=== PATIENT | female | born 1960 | race Caucasian/White ===

== ENCOUNTER → 2016-09-01 | Outpatient (CLI) | payer MEDICARE, BC ==
[2014-07-19 17:44] VITALS: BP 157/76
[~2016-09-01] MED LIST: ALPR0.25 PO; ARIP1SOL PO; BUPR75TA5 PO; CARB200T3 PO; LEVO25TA4 PO; QUET25TA5 PO
--- NOTE | 2016-09-02 08:09 | KCIC ---
Bilateral digital screening mammograms with CAD: HISTORY Routine screening COMPARISON Comparison is made to previous examinations dated 08/23/2015 and 10/22/2008. FINDINGS Breast density category C. The skin and nipples show no abnormalities. No abnormal lymph nodes are seen in the axilla. The breast parenchyma shows heterogeneous density. There appears to be some new nodularity anterior medially in the left breast on CC view which is probably at the 9 o'clock position and measures approximately 5.7 millimeters in size. Recommend further evaluation with coned compression views and ultrasound. There are no other dominant masses, suspicious calcifications or architectural distortions. IMPRESSION New nodularity anterior medially in the left breast on CC view and probably located at the 9 o'clock position. This measures approximately 5.7 millimeters in size. Recommend further evaluation with coned compression views and ultrasound. This study was interpreted with the benefit of Computerized Aided Detection (CAD). Mammography is not 100% sensitive in detecting breast cancer. Therefore, a self breast exam and a clinical breast exam are very important. A negative mammogram does not negate a clinically suspicious finding and should not result in a delay in biopsying a clinically suspicious abnormality. BI-RADS category 0: Incomplete. Additional imaging is recommended. This patient's information has been entered into a reminder system for the patient to be notified with the results of this examination and a target date for her next mammograms. Electronically signed by: Maddy Reardon MD (September 02, 2016 08:08:19)
== END | disposition home or self-care (01) ==
LOC: KCIC MAMMO 11:11
PROVIDERS: ATTEND Family Medicine
DX: Z12.31 Encounter for screening mammogram for malignant neoplasm of breast (principal)
CPT/HCPCS: G0202; 77067

== ENCOUNTER → 2016-10-08 | Outpatient (CLI) | payer MEDICARE, BC ==
[2014-07-19 17:44] VITALS: BP 157/76
--- NOTE | 2016-10-08 13:33 | RAD ---
DATE: 10/08/2016 EXAM: DIGITAL DIAGNOSTIC LT HISTORY: Nodule seen in the left breast on recent screening mammogram. COMPARISON: 09/01/2016 This study was interpreted with the benefit of Computerized Aided Detection (CAD). FINDINGS: Spot compression MLO and CC digital mammograms of the left breast were obtained. Comparison study is dated 09/01/2016. The nodular density seen within the left breast on the patient's recent mammogram compresses out on today's spot compression views. No persistent mass is seen. IMPRESSION: The nodular density within the left breast compresses out on today's spot compression views. No mass is seen. I would recategorize the patient's mammograms as a BI-RADS Category 1, negative with a recommendation for routine yearly screening mammography for follow-up. BI-RADS CATEGORY: 1 NEGATIVE RECOMMENDED FOLLOW-UP: 12M 12 MONTH FOLLOW-UP PQRS compliance statement: Patient information was entered into a reminder system with a target due date 09/01/2017 for the next mammogram. Mammography is a sensitive method for finding small breast cancers, but it does not detect them all and is not a substitute for careful clinical examination. A negative mammogram does not negate a clinically suspicious finding and should not result in delay in biopsying a clinically suspicious abnormality. "Our facility is accredited by the [employer] Mammography Program."
== END | disposition home or self-care (01) ==
LOC: KCIC MAMMO 12:35
PROVIDERS: ATTEND Family Medicine
DX: N63 Unspecified lump in breast (principal)
CPT/HCPCS: G0206; 77065

== ENCOUNTER → 2017-10-18 | Outpatient (CLI) | payer MEDICARE, BC | END | disposition home or self-care (01) | LOC: KCIC MAMMO 13:52 | DX: Z12.31 Encounter for screening mammogram for malignant neoplasm of breast (principal) | CPT/HCPCS: 77063; 77067 ==

== ENCOUNTER 2018-04-07 05:33 | Observation (INO) | payer MEDICARE ==
[~2018-04-07] VITALS: Ht 162.6 cm; Wt 60.3 kg
[~2018-04-07 05:33] MED LIST changes: +AMLO10TA6 PO
[2018-04-07] MEDS ORDERED: fentaNYL PF VIAL 100 MCG/2 ML VIAL IV PRN ×2 (07:00)
[2018-04-07] MEDS ORDERED: MORPHINE SULFATE 2 MG/ML VIAL. IV PRN (07:00)
[2018-04-07] MEDS ORDERED: ONDANSETRON PF 4 MG/2 ML VIAL. IV PRN ×2 (07:00→10:45)
[2018-04-07] MEDS ORDERED: IV RINGERS,LACTATED 1000ML 1,000 ML IV SCH (07:00)
[2018-04-07] MEDS ORDERED: PROCHLORPERAZINE 10 MG/2 ML VIAL. IV PRN (07:00)
[2018-04-07] MEDS ORDERED: LIDOCAINE 1% PF 2 ML VIAL. ID PRN (07:00)
[2018-04-07] MEDS ORDERED: HYDROmorphone 2 MG/ML VIAL IV PRN (07:00)
[2018-04-07] MEDS ORDERED: BUPIVAC MPF-EPI 0.5%-1:200000 30 ML VIAL. ONE (07:22)
[2018-04-07] MEDS ORDERED: ESTROGENS, CONJ VAGINAL CREAM 30GM TUBE. ONE (07:22)
[2018-04-07] MEDS ORDERED: INDIGOTINDISULFONATE SODIUM 40 MG/5 ML AMPUL. IV ONE (07:30)
[2018-04-07] MEDS ORDERED: DEXAMETHASONE SOD PHOS 20 MG/5 ML VIAL. ONE (07:57)
[2018-04-07] MEDS ORDERED: PROPOFOL 20 ML IV ONE (07:57)
[2018-04-07] MEDS ORDERED: LIDOCAINE 2% PF Vial for OR 5 ML VIAL. ONE (07:57)
[2018-04-07] MEDS ORDERED: FAMOTIDINE 20 MG/2 ML VIAL ONE (07:57)
[2018-04-07] MEDS ORDERED: ONDANSETRON PF 4 MG/2 ML VIAL. ONE (07:57)
[2018-04-07] MEDS ORDERED: MIDAZOLAM HCL/PF 2 MG/2 ML VIAL. ONE (07:58)
[2018-04-07] MEDS ORDERED: ROCURONIUM 50 MG/5 ML VIAL. ONE (07:58)
[2018-04-07] MEDS ORDERED: fentaNYL PF VIAL 100 MCG/2 ML VIAL ONE ×2 (07:58→10:52)
--- NOTE | 2018-04-07 08:08 | RAD ---
CHEST PA LATERAL History: PRE OP FOR HYSTERECTOMY TODAY. Comparison: None. Heart size: Within normal limits. Maggie/mediastinum: Within normal limits Lungs: No focal airspace consolidation. Pleura: No evidence of pleural effusion. Pneumothorax: None visualized Bones: Mild anterior wedging of a lower thoracic vertebral body, probably T12. Miscellaneous: None Impression: No acute cardiopulmonary findings. Electronically signed by: Crow Lazo MD (04/07/2018 8:04 AM) [facility]
[2018-04-07] MEDS ORDERED: diphenhydrAMINE 50 MG/ML VIAL ONE (08:47)
[2018-04-07] MEDS: ALPRAZolam 0.25 MG TABLET PO SCH (09:00)
[2018-04-07] MEDS ORDERED: KETOROLAC 30 MG/ML INJ FOR OR. INJ ONE (09:37)
[2018-04-07] MEDS ORDERED: GLYCOPYRROLATE 1 MG/5 ML VIAL. ONE (09:37)
[2018-04-07] MEDS ORDERED: NEOSTIGMINE METHYLSULFATE 5 MG/5 ML SYRINGE. ONE (09:37)
[2018-04-07] MEDS ORDERED: SEVOFLURANE 61 TO 120 MINUTES. IH ONE (10:20)
--- NOTE | 2018-04-07 10:31 | PDOC ---
BRIEF OPERATIVE NOTE Date: Apr 07, 2018 Pre-Op Diagnosis ovarian mass with elevated Ca-125 level Post-Op Diagnosis same Procedure Performed LAVH/BSO Surgeon Dr. Angelica Sherman Telegrapher Agent OR Anesthesiologist Dr. Walters Anesthesia Type: General Blood Loss 25cc IV Fluid 1L Urine Output 400cc clear via emerson Specimens Obtained cervix, uterus, bilateral tubes and ovaries Findings small postmenopausal uterus, normal bilateral tubes and left ovary, right ovary with small mass; very narrow atrophic vagina Complications none Operative Note [id number] ANGELICA SHERMAN MD Apr 07, 2018 10:31
[2018-04-07] MEDS ORDERED: 0.9 % SODIUM CHLORIDE 10 ML DISP.SYRIN. IV PRN (10:45)
[2018-04-07] MEDS ORDERED: NALOXONE 0.4 MG/ML VIAL. IV PRN (10:45)
[2018-04-07] MEDS ORDERED: HYDROcodone/APAP 5/325MG 1 TAB TABLET PO PRN (10:45)
[2018-04-07] MEDS ORDERED: CALCIUM CARBONATE 500 MG TAB.CHEW PO PRN (10:45)
[2018-04-07] MEDS ORDERED: LACTULOSE 20 GM/30 ML SOLUTION. PO PRN (10:45)
[2018-04-07] MEDS ORDERED: oxyCODONE/APAP 5/325 1 TAB TABLET PO PRN (10:45)
[2018-04-07] MEDS ORDERED: MORPHINE SULFATE 4 MG/ML VIAL. IV PRN (10:45)
[2018-04-07] MEDS ORDERED: MAGNESIUM HYDROXIDE 2,400 MG/30 ML ORAL.SUSP. PO PRN (10:45)
[2018-04-07] MEDS ORDERED: MAG HYDROX/ALUMINUM HYD/SIMETH 30 ML ORAL.SUSP PO PRN (10:45)
[2018-04-07] MEDS ORDERED: diphenhydrAMINE 50 MG/ML VIAL IV PRN (10:45)
[2018-04-07] MEDS ORDERED: diphenhydrAMINE HCL 25 MG CAPSULE PO PRN (10:45)
[2018-04-07] MEDS ORDERED: SIMETHICONE 80 MG TAB.CHEW PO PRN (10:45)
[2018-04-07] MEDS ORDERED: ZOLPIDEM 5 MG TABLET. PO PRN (10:45)
[2018-04-07] MEDS: carBAMazepine 200 MG TABLET PO SCH ×2 (11:00→21:00)
[2018-04-07] MEDS: amLODIPine BESYLATE 10 MG TABLET PO SCH (11:00)
[2018-04-07] MEDS: buPROPion SR 150 MG TABLET.SA PO SCH (11:00)
--- NOTE | 2018-04-07 11:04 | OP ---
DATE OF SURGERY: 04/07/2018 PREOPERATIVE DIAGNOSIS: Ovarian mass with elevated CA-125 level. POSTOPERATIVE DIAGNOSIS: Ovarian mass with elevated CA-125 level. PROCEDURE: Laparoscopic-assisted vaginal hysterectomy, bilateral salpingo-oophorectomy. SURGEON: Alexander Hughes M.D. CIRCUITRY NEGATIVE INSPECTOR: OR personnel. ANESTHESIOLOGIST: Dr. Watlers. ANESTHESIA: General. ESTIMATED BLOOD LOSS: 25 mL URINE OUTPUT: 400 mL, clear via Bae catheter. INTRAVENOUS FLUIDS: 1 liter of crystalloid. FINDINGS: A small retroverted uterus, normal bilateral tubes, normal left ovary, right ovary had a small ovarian mass with a very narrow atrophic vagina. Cervix was almost flushed at the top. SPECIMENS: Cervix, uterus, bilateral tubes and ovaries. The right tube and ovary were together, but they were from the uterus and cervix and left tube and ovary. COMPLICATIONS: None. DESCRIPTION OF PROCEDURE: This patient was taken to the operating room where general anesthesia was placed. The patient was placed in [facility]. The patient's abdomen and vagina were prepped and draped in the normal sterile fashion and a Bae catheter had been inserted under sterile technique. Upon my arrival, a timeout was performed. Once everyone agreed, a bivalve speculum was placed in the patient's vagina. A single tooth tenaculum was used to grasp the anterior lip of the cervix. 10 mL of local was placed circumferentially around the cervix for both hemodissection and hemostatic purposes later. The Valtchev uterine manipulator was placed through the endocervical os, locked on the single tooth tenaculum and the bivalve speculum was then removed. Top gloves were discarded and changed. Attention was then turned to the abdomen where a small infraumbilical skin incision was made with the scalpel. A curved Sahara was used to dissect through the subcuticular layer to the fascia. The 5 mm Visiport was used to directly enter the abdominal cavity. Opening patient pressure was 3-4 mmHg. Carbon dioxide gas was used to then appropriately insufflate the abdominal cavity to maintain a pressure of 15 mmHg. The patient was placed in Trendelenburg position. Right and left lower quadrant ports were placed. There was no significant adhesive disease inside, so transilluminating the abdomen making a small incision clear of any vasculature and placing the 5 mm disposable atraumatic ports. Once they were in, 2 mL of air was placed in the cuffs on both sides. The scope was moved and looked at the umbilical port. Once we assured it was then clear that 2 mL of a cuff was inflated as well. At this point, the left tube and ovary were elevated. They were normal finding the ureter coursing low, staying high on the IP ligament under the ovary, the LigaSure was used to cauterize and cut the infundibulopelvic ligament going over through the left round ligament and then going down and starting to get near the uterine vessels on that side and start the bladder flap on this side. Once it was started, it was created sharply. This was done exactly the same on the right side elevating the right tube and ovary. The right ovary had a small mass on it. Finding the ureter coursing low, staying high under the ovary on the IP ligament, cauterizing and cutting with the LigaSure going through the right round ligament. When I came back, I went through the right uterine ovarian pedicle as well and so, the right tube and ovary were detached and placed in the cul-de-sac, but I then did go down to get the uterines on this side as well and met that bladder flap and made sure it was down getting the uterine vessels on both sides, staying inside that and going through the cardinal and broad ligaments down to the uterosacral ligaments bilaterally. The entire uterus was free and blanched. At this point, everything was removed from the abdomen and attention was turned vaginally. The single tooth and Valtchev were removed. A weighted speculum was placed in the patient's vagina. Thyroid Jose Eduardo clamps were placed on the anterior and posterior lips of the cervix respectively. A scalpel was used to make a circumferential incision in the cervix. The posterior cul-de-sac was sharply entered by elevating the cervix and sharply entering it with the Stockton scissors. A #0 Vicryl stitch was used to secure the posterior peritoneum here to the vaginal cuff and it was tagged with a curved Sahara clamp and the needle was cut and passed off. The short weighted vaginal speculum was removed and replaced with the long weighted Candace speculum in the posterior cul-de-sac. Once this was done, an open Ray-Kahlil was used to gently push up the anterior bladder peritoneum and I worked on the patient's left side and was able to get in on the left side to the anterior cul-de-sac and placed the curved Darin. I then removed the 4 x 4. At this point, curved Cabrera clamps x 2 were placed on the patient's left uterosacral ligament where they were doubly clamped with curved Heaneys, cut with Stockton scissors and suture ligated x 2 with 0 Vicryl. The second one was taken through the vaginal cuff securing uterosacral ligament to the vaginal cuff and tagging it with a straight Sahara clamp and cutting and passing the needle off. This was done exactly the same on the patient's right side, double clamping the uterosacrals with curved Cabrera's, cutting with Stockton scissors, suture ligating x 2 with 0 Vicryl and taking the second one through the vaginal cuff, tagging it with a straight Sahara clamp and cutting and passing the needle off. Once this was done, the remaining pedicles on both sides were delineated with the curved mixture and the vaginal LigaSure was used to cauterize the remaining pedicles on both sides. The cervix, uterus, left tube and ovary were delivered in total. The right tube and ovary were sitting in the cul-de-sac. These were easily identified and pulled out with pickups. A sponge stick was used to examine the pedicle. A long Allis was used to grasp the anterior bladder peritoneum. The long Candace speculum was removed and replaced with a short weighted vaginal speculum. There was no bleeding from any of the pedicles, so 2-0 Vicryl was taken through the anterior bladder peritoneum, left uterosacral ligament, posterior peritoneum and right uterosacral ligament, thus closing the peritoneum in a pursestring like fashion. The right and left uterosacral tags were clipped as well and the vaginal cuff was closed with a full length 2-0 Vicryl in an anterior to posterior running locked fashion and tied to that posterior cuff tag. Once this was done, a sponge stick was used to examine the cuff. It was completely hemostatic, so all instruments were removed from the vagina and attention was turned back above for a second look. All gloves were discarded and changed. The patient was placed back in Trendelenburg position. Gas was reinsufflated. Copious irrigation revealed hemostasis. The cul-de-sac was dry. The gutters were dry. All the pedicles were dry. Right and left pericolic gutters looked good, so Tisseel was placed over the pedicles with excellent results. All three of the trocar cuffs were deflated. The right and left lower quadrant ports were removed under direct visualization. These were hemostatic. Gas was released from the umbilical port. All 3 port sites were closed with 4-0 nylon at the skin and injected with 10 mL of local. The patient is currently being awakened from anesthesia. ALEXANDER HUGHES MD DR: KAREN/wilian JOB#: [id number] / [id number]
[2018-04-07 11:29] VITALS: BP 113/59
[2018-04-07 21:00] VITALS: BP 120/67
[2018-04-08 04:10] VITALS: BP 110/68
[2018-04-08] MEDS ORDERED: LEVOTHYROXINE 75 MCG TABLET PO SCH (06:00)
[2018-04-08 07:16] LABS: CALCIUM 8.3 mg/dL (8.5-10.1); CREATININE 0.8 mg/dL (0.6-1.0); GFR 73.9; POTASSIUM 3.8 mmol/L (3.5-5.1)
--- NOTE | 2018-04-08 08:37 | PDOC ---
SURGICAL PROGRESS NOTE Subjective Doing well without complaints. Pain level 0-1. Scant spotting, up in chair eating breakfast. Ambulating well, voiding without catheter and wants to go home. Vital Signs Vital Signs Date Time Temp Pulse Resp B/P (MAP) Pulse Ox O2 Delivery O2 Flow Rate FiO2 04/08/18 04:10 98.1 92 110/68 (82) 96 Room Air 98.1 04/07/18 21:00 2.0 04/07/18 21:00 18 I&O Intake and Output 04/08/18 07:00 Intake Total 4795 ml Output Total 1225 ml Balance 3570 ml Intake Oral 3420 ml IV Total 1250 ml Other 125 ml Output Urine Total 1200 ml Estimated Blood Loss 25 ml # Voids 2 PATIENT HAS A FERNANDO: No General: Alert, Oriented X3, Cooperative, No acute distress HEENT: Atraumatic Heart: Regular rate Abdomen: Soft, No tenderness, No masses, Other (all port sites c/d/i with minimal bruising) Extremities: No clubbing, No cyanosis, No edema, No tenderness/swelling Skin: No rashes, No breakdown Neuro: Normal speech Psych/Mental Status: Mental status NL, Mood NL Labs Laboratory Tests Test 04/08/18 06:20 04/08/18 06:40 Hematocrit 34.5 % (36.0-47.0) Sodium Level 133 mmol/L (136-145) Potassium Level 3.8 mmol/L (3.5-5.1) Chloride Level 97 mmol/L (98-107) Carbon Dioxide Level 30 mmol/L (21-32) Anion Gap 6 (6-14) Blood Urea Nitrogen 9 mg/dL (7-20) Creatinine 0.8 mg/dL (0.6-1.0) Estimated GFR (Cockcroft-Gault) 73.9 Glucose Level 121 mg/dL (70-99) Calcium Level 8.3 mg/dL (8.5-10.1) Laboratory Tests Test 04/08/18 06:20 04/08/18 06:40 Hematocrit 34.5 % (36.0-47.0) Sodium Level 133 mmol/L (136-145) Potassium Level 3.8 mmol/L (3.5-5.1) Chloride Level 97 mmol/L (98-107) Carbon Dioxide Level 30 mmol/L (21-32) Anion Gap 6 (6-14) Blood Urea Nitrogen 9 mg/dL (7-20) Creatinine 0.8 mg/dL (0.6-1.0) Estimated GFR (Cockcroft-Gault) 73.9 Glucose Level 121 mg/dL (70-99) Calcium Level 8.3 mg/dL (8.5-10.1) I have reviewed the following labs, vitals and nursing Heme/Onc: No pertinent hx Rheumatologic: No pertinent hx Infectious disease: No pertinent hx Problem List ovarian mass with elevated ca-125 level Assessment/Plan POD#1 s/p LAVH/BSO Routine PO care d/c to home later today NPV x 6 weeks Light/limited activity x 2 weeks keep scheduled follow up with me in the office pt already has narcotic script at home ok to alternate ibuprofen as needed OTC as well call or return sooner for any other questions or concerns not limited to but including pain unrelieved with pain meds, increased or unexplained vaginal bleeding or any other questions or concerns ALEXANDER SHERMAN MD Apr 08, 2018 08:37
--- NOTE | 2018-04-08 08:39 | PDOC3 ---
Discharge Summary Visit Information Date of Admission: Apr 07, 2018 Date of Discharge: Apr 08, 2018 Final Diagnosis ovarian mass Brief Hospital Course Allergies Allergies Coded Allergies Type Severity Reaction Last Updated Verified No Known Drug Allergies 04/07/18 No Vital Signs Vital Signs Date Time Temp Pulse Resp B/P (MAP) Pulse Ox O2 Delivery O2 Flow Rate FiO2 04/08/18 04:10 98.1 92 110/68 (82) 96 Room Air 98.1 04/07/18 21:00 2.0 04/07/18 21:00 18 Lab Results Laboratory Tests Test 04/08/18 06:20 04/08/18 06:40 Hematocrit 34.5 % (36.0-47.0) Sodium Level 133 mmol/L (136-145) Potassium Level 3.8 mmol/L (3.5-5.1) Chloride Level 97 mmol/L (98-107) Carbon Dioxide Level 30 mmol/L (21-32) Anion Gap 6 (6-14) Blood Urea Nitrogen 9 mg/dL (7-20) Creatinine 0.8 mg/dL (0.6-1.0) Estimated GFR (Cockcroft-Gault) 73.9 Glucose Level 121 mg/dL (70-99) Calcium Level 8.3 mg/dL (8.5-10.1) Laboratory Tests Test 04/08/18 06:20 04/08/18 06:40 Hematocrit 34.5 % (36.0-47.0) Sodium Level 133 mmol/L (136-145) Potassium Level 3.8 mmol/L (3.5-5.1) Chloride Level 97 mmol/L (98-107) Carbon Dioxide Level 30 mmol/L (21-32) Anion Gap 6 (6-14) Blood Urea Nitrogen 9 mg/dL (7-20) Creatinine 0.8 mg/dL (0.6-1.0) Estimated GFR (Cockcroft-Gault) 73.9 Glucose Level 121 mg/dL (70-99) Calcium Level 8.3 mg/dL (8.5-10.1) Brief Hospital Course Ms. Jenkins is a 58 old female who presented with ovarian mass and mildly elevated Ca-125 level in the office. She presented yesterday for LAVH/BSO, she underwent the aforementioned procedure without complications. She has had an unremarkable postoperative course and is AF VSS, ambulating well, voiding without catheter, minimal pain desiring to go home. Tolerating regular diet. Discharge Information Condition at Discharge: Improved Follow Up: Weeks Disposition/Orders: D/C to Home Scheduled Alprazolam (Xanax) 0.25 Mg Tablet, 1 TAB PO DAILY, #30 (Reported) Entered as Reported by: TURNER HAMLIN on 08/06/141000 Last Taken: Unknown Dose on 04/07/18299 Last Action: Continued on 04/07 by ALEXANDER SHERMAN Amlodipine Besylate (Amlodipine Besylate) 10 Mg Tablet, 10 MG PO DAILY for HTN, (Reported) Entered as Reported by: CHASE BENAVIDES on 03/31/18 144 Last Taken: Unknown Dose on 04/07/18299 Last Action: Continued on 04/07 by ALEXANDER SHERMAN Bupropion Hcl (Wellbutrin) 75 Mg Tablet, 150 MG PO DAILY for DEPRESSION, #60 ( Reported) Entered as Reported by: TURNER HAMLIN on 08/06/141000 Last Taken: Unknown Dose on 04/07/18299 Last Action: Continued on 04/07 by ALEXANDER SHERMAN Carbamazepine (Epitol) 200 Mg Tablet, 200 MG PO BID for BIPOLAR, (Reported) Entered as Reported by: TURNER HAMLIN on 08/06/141000 Last Taken: Unknown Dose on 04/07/18299 Last Action: Continued on 04/07 by ALEXANDER SHERMAN Levothyroxine Sodium (Levothyroxine Sodium) 25 Mcg Tablet, 75 MCG PO DAILY for HYPOTHYROID, #30 Ref 5 (Reported) Entered as Reported by: TURNER HAMLIN on 08/06/141000 Last Taken: Unknown Dose on 04/07/18299 Last Action: Converted on 04/07 by ALEXANDER SHERMAN Quetiapine Fumarate (Seroquel) 25 Mg Tablet, 1 TAB PO QHS, #30 Ref 2 (Reported) Entered as Reported by: TURNER HAMLIN on 08/06/141000 Last Taken: Unknown Dose on 04/07/18299 Last Action: HELD on 04/07/18831 by ALEXANDER SHERMAN Patient Instructions Patient Instructions POD#1 s/p LAVH/BSO Routine PO care d/c to home later today NPV x 6 weeks Light/limited activity x 2 weeks keep scheduled follow up with me in the office pt already has narcotic script at home ok to alternate ibuprofen as needed OTC as well call or return sooner for any other questions or concerns not limited to but including pain unrelieved with pain meds, increased or unexplained vaginal bleeding or any other questions or concerns ALEXANDER SHERMAN MD Apr 08, 2018 08:39
[2018-04-08] MEDS: carBAMazepine 200 MG TABLET PO SCH (09:00)
[2018-04-08] MEDS: ALPRAZolam 0.25 MG TABLET PO SCH (09:00)
[2018-04-08] MEDS: buPROPion SR 150 MG TABLET.SA PO SCH (09:00)
[2018-04-08] MEDS: amLODIPine BESYLATE 10 MG TABLET PO SCH (09:00)
[2018-04-08] MEDS ORDERED: IBUPROFEN 400 MG TABLET. PO PRN (09:15)
[2018-04-08 09:57] VITALS: BP 130/57
--- NOTE | 2018-04-12 09:09 | PATHOLOGY ---
[facility] Accession Number: [id number] . 01 Material submitted: . UTERUS, FALLOPIAN TUBES AND CERVIX, OVARIES . 01 Clinical history: . Ovarian mass-small, right Elevated CA-125 . 02 Diagnosis: Uterus and bilateral fallopian tubes and ovaries, laparoscopic-assisted vaginal hysterectomy with bilateral salpingo-oophorectomy: - Leiomyoma, uterine corpus, posterior uterine wall, measuring 1.5 cm. - Atrophic endometrium. - Involutional changes and cystic Walthard rests of bilateral fallopian tubes. - Involutional changes of bilateral ovaries. 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 . (JPM:mml; 04/11/18) [facility]/04/11/2018 . 02 Comment: There is no evidence of malignancy. . (JPM:mml; 04/11/18) . 02 Electronically signed: . Rick Newton MD, Pathologist NPI- [id number] . 01 Gross description: . The specimen is received in formalin, labeled "Jenkins, Marcela, uterus, fallopian tubes, cervix, and ovaries" and consists of a uterus with attached cervix weighing 33 g and measuring 6.8 x 3.8 x 2.5 cm. There is attached left tubo-ovarian complex consisting of a fimbriated fallopian tube (4.5 cm in length and 0.4 cm in diameter) which is attached to a 4 g ovary (2.7 x 2.0 x 1.1 cm. Attached is the right fimbriated fallopian tube (4.5 cm in length and 0.5 cm in diameter) which is loosely attached to a 4 g ovary (2.7 x 1.8 x 0.9 cm). The uterine serosa is dorsey, smooth with multifocal hemorrhage on the posterior aspect. The 0.5 cm cervical os is surrounded by ragged pink-dorsey ectocervical mucosa. The specimen is bivalved to reveal a corrugated pink-dorsey endocervical canal measuring 2.0 cm in length. The endometrial cavity is triangular measuring 2.9 cm in length and 1.7 cm in width which is lined by a dorsey-pink endometrium measuring 0.1 cm. Further sectioning reveals a pink-dorsey myometrium measuring up to 1.5 cm containing a single circumscribed nodule measuring 1.2 x 1.1 cm in the posterior myometrium. The cut surfaces of the nodule are pink-dorsey, homogeneous without hemorrhage, necrosis, or calcifications. No additional nodules or mass lesions are identified. . The detached right fimbriated fallopian tube is torres-dorsey and smooth with a few paratubal cysts ranging from 0.1-0.3 cm. Sectioning reveals a central lumen and no gross lesions. The right ovary is dorsey, smooth to cerebriform with a serosal white-dorsey nodule measuring 0.8 x 0.4 x 0.4 cm. The ovary is inked black and sectioned to reveal dorsey cut surfaces with multiple corpora albicantia. The serosal nodule has a homogeneous white-dorsey cut surface. . The attached left fimbriated fallopian tube is purple-dorsey and smooth with 2 paratubal cysts measuring 0.4 and 0.5 cm respectively. Sectioning reveals a central lumen with no gross lesions. The left ovary is dorsey and smooth to cerebriform with a serosal dorsey-brown nodule measuring 0.5 x 0.5 cm. The ovary is inked black and sectioned to reveal a torres-dorsey cut surface with 2 unilocular clear fluid-filled cysts measuring 0.5 cm and 0.7 cm. The serosal nodule has a smooth torres dorsey homogeneous cut surfaces. Raw Products Director sections are submitted as follows: . A1: Anterior cervix A2: Posterior cervix A3: Anterior endomyometrium A4: Posterior endomyometrium A5: Nodule A6-A7: Right fallopian tube, entire A8-A11: Entire right ovary (A8 contains nodule) A12-A13: Entire left fallopian tube A14-A16: Entire left ovary (A14 contains serosal nodule) (SDY; 04/08/2018) SYU/SYU . 02 Pathologist provided ICD-10: D25.9, N85.8, N83.292 . 02 CPT . 189660 Specimen Comment: A courtesy copy of this report has been sent to Specimen Comment: [phone], . Specimen Comment: Report sent to / DR LIANG Specimen Comment: A duplicate report has been generated due to demographic updates. Performed at: 01 [facility] [address] [facility] [address], [place] [id number] MD Nemesio Joyner MD Phone: [phone] Performed at: 02 [facility] [address] [place], [place] [id number] MD Rick Newton MD Phone: [phone]
== END 2018-04-08 10:38 | disposition home or self-care (01) ==
LOC: SURG 05:33 → 3 NORTH 10:58
PROVIDERS: ADMIT Obstetrics & Gynecology; ATTEND Obstetrics & Gynecology
DX: D25.9 Leiomyoma of uterus, unspecified (principal); N83.9 Noninflammatory disorder of ovary, fallopian tube and broad ligament, unspecified; N85.4 Malposition of uterus; N83.292 Other ovarian cyst, left side
CPT/HCPCS: 36415; 58552; 71046; 80048; 85014; 86850; 86900; 86901; 88307; A7015; G0378; G0379; J0690; J1100; J1885; J2001; J2250; J2704; J2710; J3010; J3490; J7030; J7120; J1200; J2405

== ENCOUNTER → 2019-01-18 | Outpatient (CLI) | payer MEDICARE ==
[~2019-01-18] MED LIST changes: -AMLO10TA6 PO; +AMLO10TA8 PO
--- NOTE | 2019-01-18 13:30 | KCIC ---
Bilateral digital screening mammograms with 3-D tomosynthesis: Reason for examination: Routine screening. Comparison is made to previous studies dated 10/18/2017 09/01/2016. Bilateral mammograms in CC and oblique projections were obtained with 2-D imaging and 3-D tomosynthesis imaging on a Siemens Inspiration unit and reviewed on the workstation. Interpretation was made with the benefit of CAD. The skin and nipples show no abnormalities. No abnormal axillary lymph nodes are seen. The breast parenchyma shows scattered fatty and fibroglandular density. (Breast density: Category B.) There are no dominant masses, suspicious calcifications or architectural distortion. Impression: No evidence of malignancy. Recommend routine screening. BI-RAD Category 1: Negative. "Our facility is accredited by the [employer] Mammography Program." This patient's information has been entered into a reminder system for the patient to be notified with the results of her examination and a target date for the next mammogram. Electronically signed by: Sadie Reardon MD (01/18/2019 1:26 PM) [id number]
== END | disposition home or self-care (01) ==
LOC: KCIC MAMMO 09:36
PROVIDERS: ATTEND Family Medicine
DX: Z12.31 Encounter for screening mammogram for malignant neoplasm of breast (principal)
CPT/HCPCS: 77063; 77067

== ENCOUNTER → 2019-10-26 | Outpatient (CLI) | payer MEDICARE ==
--- NOTE | 2019-10-26 08:22 | RAD ---
DUPLEX LOWER EXTREMITY BILAT, CORBIN ART STUDY LOWER EXTREM ANIYAH 10/26/2019 7:00 AM INDICATION: Claudication COMPARISON: None available TECHNIQUE: Sonographic evaluation of the bilateral lower extremity arterial system was performed utilizing grayscale, color Doppler and spectral waveform analysis. FINDINGS: Right: Biphasic waveform is identified in the profunda artery and distal superficial femoral artery. Triphasic waveform is otherwise seen throughout the right lower extremity arterial system. No significant plaque is visualized. Common femoral artery: 142 cm/s Profunda artery: 62 cm/s Superficial femoral artery, proximal: 129 cm/s Superficial femoral artery, mid: 117 cm/s Superficial femoral artery, distal: 95 cm/s Popliteal artery: 80 cm/s Posterior tibial artery: 59-91 cm/s Anterior tibial artery: 100 cm/s Peroneal artery: 43 cm/s Dorsalis pedis artery: 107 cm/s Left: Biphasic waveform is identified in the profunda artery. Otherwise, triphasic waveforms identified throughout the left lower extremity arterial system. No significant plaque is identified on grayscale images. Common femoral artery: 123 cm/s Profunda artery: 99 cm/s Superficial femoral artery, proximal: 131 cm/s Superficial femoral artery, mid: 109 cm/s Superficial femoral artery, distal: 87 cm/s Popliteal artery: 53 cm/s Posterior tibial artery: 41-61 cm/s Anterior tibial artery: 92 cm/s Peroneal artery: 58 cm/s Dorsalis pedis artery: 86 cm/s IMPRESSION: No evidence for hemodynamically significant stenosis involving the bilateral lower extremity arterial system. Electronically signed by: Zandra Gallo MD (10/26/2019 8:19 AM) [id number]
== END | disposition home or self-care (01) ==
LOC: US 06:33
PROVIDERS: ATTEND Family Medicine
DX: I73.9 Peripheral vascular disease, unspecified (principal); L53.9 Erythematous condition, unspecified
CPT/HCPCS: 93922; 93925

== ENCOUNTER → 2020-01-25 | Outpatient (CLI) | payer MEDICARE ==
--- NOTE | 2020-01-25 14:57 | KCIC ---
EXAM: Bilateral digital screening mammogram with tomosynthesis. HISTORY: 59-year-old female presents for screening mammography. TECHNIQUE: Full-field digital craniocaudal and mediolateral oblique 2D and 3D tomosynthesis images of both breasts are obtained for evaluation. Computer aided detection with [employer] software version 9.3 was applied. COMPARISON: 01/18/2019 BREAST PARENCHYMAL DENSITY: Level C - Heterogeneously dense. FINDINGS: There is no new suspicious mass, microcalcification or region of architectural distortion. IMPRESSION: BI-RADS Category 2: Benign finding(s). RECOMMENDATION: Annual mammography is recommended. If your mammogram demonstrates that you have dense breast tissue, which could hide abnormalities, and if you have other risk factors for breast cancer that have been identified, you might benefit from supplemental screening tests that may be suggested by your ordering physician. Dense breast tissue, in and of itself, is a relatively common condition. This information is not provided to cause undue concern, but rather to raise your awareness and to promote discussion with your physician regarding the presence of other risk factors, in addition to dense breast tissue. A report of your mammography results will be sent to you and your physician. You should contact your physician if you have any questions or concerns regarding this report. Mammography is a sensitive method for finding small breast cancers, but it does not detect them all and is not a substitute for careful clinical examination. A negative mammogram does not negate a clinically suspicious finding and should not result in delay in biopsying a clinically suspicious abnormality. PQRS compliance statement - Patient information was entered into a reminder system with a target due date for the next mammogram. "Our facility is accredited by the [employer] M[employer]." Electronically signed by: Alivia Early MD (01/25/2020 2:54 PM) [id number]
== END | disposition home or self-care (01) ==
LOC: KCIC MAMMO 10:51
PROVIDERS: ATTEND Family Medicine
DX: Z12.31 Encounter for screening mammogram for malignant neoplasm of breast (principal)
CPT/HCPCS: 77063; 77067

== ENCOUNTER → 2021-01-22 | Outpatient (CLI) | payer MEDICARE ==
[~2021-01-22] MED LIST changes: +AMLO-187 PO; -AMLO10TA8 PO
--- NOTE | 2021-01-23 01:32 | KCIC ---
EXAM: AP and lateral views right forearm DATE: 01/22/2021 2:54 PM INDICATION: Reason: RIGHT FOREARM PAIN/REDNESS/SWELLING FROM CAT SCRATCHES YESTERDAY / Spl. Instructi ons: / History: . COMPARISON: No Prior FINDINGS/ IMPRESSION: No evidence of acute fracture or dislocation. Decreased bone mineral density. Soft tissue swelling ab out the right proximal forearm particularly medially and dorsally. Electronically signed by: Kang Knapp MD (01/23/2021 1:30 AM) TOM
== END ==
LOC: KCIC 14:50
PROVIDERS: ATTEND Physician Assistant
DX: M85.831 Other specified disorders of bone density and structure, right forearm (principal); M79.89 Other specified soft tissue disorders; M79.631 Pain in right forearm
CPT/HCPCS: 73090

== ENCOUNTER → 2021-08-04 | Outpatient (CLI) | payer MEDICARE ==
--- NOTE | 2021-08-04 12:37 | KCIC ---
Bilateral digital screening mammograms with 3-D tomosynthesis: Reason for examination: Routine screening. Comparison is made to previous studies dated back to 10/08/2016. Bilateral mammograms in CC and oblique projections were obtained with 2-D imaging and 3-D tomosynthes is imaging on a Siemens Inspiration unit and reviewed on the workstation. CAD was not available for i nterpretation of this exam. The skin and nipples show no abnormalities. No abnormal axillary lymph nodes are seen. The breast par enchyma is heterogeneously dense. (Breast density: Category C.) There are no dominant masses, suspici ous calcifications or architectural distortion. Impression: No evidence of malignancy. Recommend routine screening. Your patient's mammogram demonstrates that she has dense breast tissue (breast density category C or D), which could hide abnormalities, and if she has other risk factors for breast cancer that have bee n identified, she might benefit from supplemental screening tests that may be suggested by you as her ordering physician. Dense breast tissue, in and of itself, is a relatively common condition. Therefo re, this information is not provided to cause undue concern, but rather to raise your awareness and t o promote discussion with your patient regarding the presence of other risk factors, in addition to d ense breast tissue. Your patient's mammography results will be sent to her. BI-RAD Category 1: Negative. "Our facility is accredited by the [employer] Mammography Program." This patient's information has been entered into a reminder system for the patient to be notified wit h the results of her examination and a target date for the next mammogram. Electronically signed by: Sadie Reardon MD (08/04/2021 12:34 PM) [id number]
== END ==
LOC: KCIC MAMMO 08:46
PROVIDERS: ATTEND Family Medicine
DX: Z12.31 Encounter for screening mammogram for malignant neoplasm of breast (principal)
CPT/HCPCS: 77063; 77067